=== PATIENT | male | born 1985 | race Hispanic/Latino ===

== ENCOUNTER 2018-09-19 12:58 | Emergency (ER) | payer SELFPAY ==
[2018-09-19] MEDS ORDERED: IBUPROFEN 600 MG TABLET ONE (13:29)
== END 2018-09-19 13:51 | disposition home or self-care (01) ==
LOC: EDH 12:58
DX: S62.396A Other fracture of fifth metacarpal bone, right hand, initial encounter for closed fracture (principal); Z72.0 Tobacco use; W23.0XXA Caught, crushed, jammed, or pinched between moving objects, initial encounter; Y93.89 Activity, other specified; Y92.69 Other specified industrial and construction area as the place of occurrence of the external cause; Y99.8 Other external cause status
CPT/HCPCS: 29125; 73130

== ENCOUNTER 2019-08-22 16:20 | Emergency (ER) | payer BC | END 2019-08-22 17:31 | disposition home or self-care (01) | LOC: EDH 16:20 | DX: M79.641 Pain in right hand (principal); Z72.0 Tobacco use | CPT/HCPCS: 73130 ==